=== PATIENT | female | born 1945 | race Caucasian/White ===

== ENCOUNTER 2022-02-14 19:51 | Observation (INO) ==
[2022-02-14] MEDS ORDERED: ONDANSETRON INJ 2 MG/ML 2 ML VIAL IV STA ×2 (20:18→22:00)
[2022-02-14] MEDS ORDERED: SODIUM CHLORIDE 0.9% 1000ML 500 ML IV ONE (20:20)
--- NOTE | 2022-02-14 20:24 | Emergency Department Note ---
Impression & Plan Nausea & vomiting, Small bowel obstruction ED Provider Note Provider: Dariel Zarco MD DATE OF SERVICE: 02/14/2022 CHIEF COMPLAINT: HISTORY OF PRESENT ILLNESS: Patient is a 76-year-old female presenting today reporting onset of nausea and vomiting with some upper abdominal discomfort coming in waves since around 11:45 AM this morning. No significant diarrhea reported. No fevers. Was well yesterday. No suspect food intake. No trauma reported. History of prior hysterectomy as well as colonoscopy with perforation required abdominal surgery some years ago. Never keep anything down this evening. Still feels nauseous. Pain mild at this time. No lower abdominal pain. No radiation of the pain to the back. Denies significant sinus congestion. REVIEW OF SYSTEMS: A total of 10 review of systems was obtained and negative except as stated above in the HPI. 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 NECK: Trachea midline. ENT: Mucous membranes pink and moist. LUNGS: Airway patent. No retractions. Breath sounds clear with good air entry bilaterally. HEART: Regular rate and rhythm. No chest wall tenderness ABDOMEN: Soft with minimal epigastric and right upper quadrant tenderness. Negative Weems's sign SKIN: Acyanotic, warm, dry, without rashes EXTREMITIES: Without swelling, tenderness or deformity NEUROLOGICAL: No focal deficits. No aphasia. No facial droop or slurred speech. EK beats per normal sinus rhythm without PVC. No acute ST segment elevation or depression with a QTC of 463. Left anterior fascicular block is noted. CONTINUOUS CARDIAC MONITORING: was ordered and showed a heart rate of 70s-80s bpm in normal sinus rhythm Patient's laboratory studies and imaging reviewed. Differential includes Appendicitis, infections, diverticulitis, UTI, obstruction, mesenteric ischemia, aortic pathology, inflammatory bowel disease, renal colic, PUD, pancreatitis, biliary pathology, hernia, volvulus, constipation, as well as other pathologies. IMPRESSION/MEDICAL DECISION MAKING: And with nausea and vomiting today by lunchtime with some intermittent wavelike upper abdominal pain. Minimal abdominal tenderness. EKG and troponin completed but low suspicion for cardiac disease and troponin is reassuring. Slight leukocytosis of 14 is nonspecific. No anemia. No evidence of elevated b ilirubin or LFT abnormality. Negative lipase. Negative COVID today. CT scan given her complaints and history of abdominal issues in the distant past was completed look for intra-abdominal pathology. CT scan as below question small bowel obstruction. Discussed with the patient. Having some nausea given additional Zofran. Some Tylenol for some abdominal discomfort. Discussed with her further care at the hospital and attempted NG tube placement. Discussed with the hospitalist for further care here. DIAGNOSIS: Nausea and vomiting, small bowel obstruction DISPOSITION: Hospitalist will evaluate Patient was agreeable with this plan. Preliminary Findings Only See Final Report For Complete Findings CT ABDOMEN & PELVIS With Contrast: Findings consistent with at least partial small bowel obstruction with the transition point noted in the right anterior pelvis. Beyond the transition point, there are several abnormal appearing small bowel loops with concentric thickened mucosa. Findings are most consistent with inflammatory or infectious enteritis. No pneumatosis or pneumoperitoneum. No free intraperitoneal fluid or abscess. Incidental postsurgical changes involving the distal rectosigmoid region. Status post hysterectomy. The bladder is unremarkable, accounting for degree of distention. The liver, gallbladder, pancreas, spleen, adrenal glands and kidneys are u nremarkable. Scoliosis, convex right with multilevel degenerative changes of the thoracolumbar spine. No acute osseous or significant overlying soft tissue abnormality. Radiologist: Venkatesh Delgado MD Study ready at 21:30 and initial results transmitted at 21:41 Past Med/Surg History Social History Smoking Status: Never smoker Preferred Language: Beninese Feels Safe at Home: Yes Allergies Allergies Allergy/AdvReac Type Severity Reaction Status Date / Time doxycycline Allergy Severe SEVERE Verified 02/14/22 21:37 PHOTOSENSATIVE RASH Penicillins Allergy Intermediate Rash Verified 02/14/22 21:37 phenobarbital Allergy Intermediate Rash Verified 02/14/22 21:37 Tetracyclines Allergy Intermediate Rash Verified 02/14/22 21:37 Home Meds Home Medications Medication Instructions Recorded Confirmed albuterol sulfate 90 mcg/actuation 2 puff inhalation Q4H PRN 02/14/22 02/14/22 aerosol inhaler Shortness Of Breath Or Wheezing calcium carbonate 600 mg-vitamin 2 cap PO DAILY 02/14/22 02/14/22 D3 12.5 mcg (500 unit) capsule (Calcium 600 with Vitamin D3) cholecalciferol (vitamin D3) 25 25 mcg PO DAILY 02/14/22 02/14/22 mcg (1,000 unit) capsule (Vitamin D3) coenzyme Q10 100 mg capsule 100 mg PO DAILY 02/14/22 02/14/22 (CoQ-10) cyclobenzaprine 5 mg tablet 5 mg PO TID PRN MUSCLE SPASMS 02/14/22 02/14/22 duloxetine 60 mg capsule,delayed 60 mg PO DAILY 02/14/22 02/14/22 release famotidine 20 mg tablet 20 mg PO DAILY 02/14/22 02/14/22 fluticasone furoate 200 1 inh inhalation DAILY 02/14/22 02/14/22 mcg-vilanterol 25 mcg/dose inhalation powder (Breo Ellipta) fluticasone propionate 50 2 spray intranasal DAILY 02/14/22 02/14/22 mcg/actuation nasal spray,suspension levothyroxine 75 mcg tablet 75 mcg PO DAILYBB 02/14/22 02/14/22 lisinopril 10 mg tablet 10 mg PO DAILY 02/14/22 02/14/22 lysine 1,000 mg tablet 1,000 mg PO DAILY 02/14/22 02/14/22 multivitamin 1 tab PO DAILY 02/14/22 02/14/22 Results & Data (ED) Vital Signs Vital Signs - 24 hr 02/14/22 19:55 02/14/22 20:23 02/14/22 20:24 Temperature 36.6 C Temperature Source Oral Pulse Rate 87 Pulse Rate [Apical] 79 Pulse Rhythm [Apical] Respiratory Rate 20 28 H Respiratory Effort / Characteristics Non-Labored Spontaneous Respiratory Depth Normal Blood Pressure 109/72 Blood Pressure [Right Arm] 127/87 Blood Pressure Mean 84 Blood Pressure Mean [Right Arm] 100 Pulse Oximetry 93 92 92 Oxygen Delivery Method Room Air Room Air Oxygen Flow Rate Sepsis New/Unexplained Change in Mental Status N/A Sepsis Action Taken by Nursing No Action Required 02/14/22 22:00 02/15/22 00:00 Temperature Temperature Source Pulse Rate Pulse Rate [Apical] 78 72 Pulse Rhythm [Apical] Regular Respiratory Rate 17 16 Respiratory Effort / Characteristics Respiratory Depth Blood Pressure Blood Pressure [Right Arm] 101/57 L 101/71 Blood Pressure Mean Blood Pressure Mean [Right Arm] 71 81 Pulse Oximetry 90 97 Oxygen Delivery Method Room Air Nasal Cannula Oxygen Flow Rate 3 Sepsis New/Unexplained Change in Mental Status Sepsis Action Taken by Nursing Laboratory Data Result diagrams: 02/14/22 20:02/14/22 20:22 Lab Results 02/14/22 02/14/22 02/14/22 Range/Units 20: 20: 20:23 WBC 14.09 H (4.8-10.8) K/ul RBC 5.44 H (3.93-5.22) M/uL Hgb 15.8 (12.0-16.0) g/dl Hct 47.7 H (34.1-44.9) % MCV 87.7 (80.0-100.0) fL MCH 29.0 (25.0-34.0) pg MCHC 33.1 (32.0-36.0) g/dL RDW Std Deviation 41.7 (36.4-46.3) fL RDW Coeff of Ana 12.9 (11.5-14.5) % Plt Count 177 (130-400) K/uL MPV 12.3 (9.4-12.3) fL Immature Gran % (Auto) 0.4 % Neut % (Auto) 82.1 % Lymph % (Auto) 13.5 % Cloud % (Auto) 3.3 % Eos % (Auto) 0.4 % Baso % (Auto) 0.3 % Neut # (Auto) 11.59 H (1.4-6.5) K/uL Lymph # (Auto) 1.90 (1.2-3.4) K/uL Cloud # (Auto) 0.46 (0.24-0.82) K/uL Eos # (Auto) 0.05 (0-0.50) K/uL Baso # (Auto) 0.04 (0-0.2) K/uL Immature Gran # (Auto) 0.05 H (0.00-0.02) K/uL Sodium 138 (136-145) mmol/L Potassium 4.2 (3.5-5.1) mmol/L Chloride 99 (98-107) mmol/L Carbon Dioxide 26 (21-32) mmol/L Anion Gap 13 H (3-11) BUN 17 (6-23) mg/dl Creatinine 1.18 (0.6-1.2) mg/dl Est Cr Clr Drug Dosing 30.6 ml/min Est GFR ( Amer) 51.5 ml/min Est GFR (Non-Af Amer) 44.5 ml/min BUN/Creatinine Ratio 14.4 (10-20) Glucose 154 H (70-99(Fasting)) mg/dl Calcium 10.0 (8.5-10.1) mg/dl Total Bilirubin 0.7 (0.2-1.0) mg/dl AST 16 (13-39) U/L ALT 3 L (7-52) U/L Alkaline Phosphatase 96 (34-104) U/L Troponin I High Sens 3.3 (0-14) pg/ml Total Protein 8.2 (6.0-8.3) gm/dl Albumin 4.4 (3.4-5.0) gm/dl Globulin 3.8 (2.5-4.0) gm/dl Albumin/Globulin Ratio 1.2 (0.9-2) Lipase 43 (11-82) U/L SARS-CoV-2, RNA, NAAT NEGATIVE (NEGATIVE) Administered Medications Discontinued Medications Sodium Chloride (Nss 1000ml) 500 mls @ 999 mls/hr IV .Q31M ONE Stop: 02/14/22 20:50 Last Infusion: 02/14/22 21:09 Dose: 0 mls/hr Documented By: Admin: 02/14/22 20:29 Dose: 999 mls/hr Documented By: BONIFACIO Acetaminophen (Ofirmev) 1,000 mg in 100 mls @ 400 mls/hr IV NOW STA Stop: 02/14/22 22:21 Last Infusion: 02/14/22 22:53 Dose: 0 mls/hr Documented By: Admin: 02/14/22 22:24 Dose: 400 mls/hr Documented By: BONIFACIO Ioversol (Optiray 320 100ml) 94 ml IV ONCE ONE Stop: 02/14/22 21:14 Last Admin: 02/14/22 21:13 Dose: 94 ml Documented By: JULIEN Ondansetron HCl (Ondansetron Inj 2 Mg/Ml 2 Ml Vial) 4 mg IV NOW STA Stop: 02/14/22 20:19 Last Admin: 02/14/22 20:29 Dose: 4 mg Documented By: BONIFACIO Ondansetron HCl (Ondansetron Inj 2 Mg/Ml 2 Ml Vial) 4 mg IV NOW STA Stop: 02/14/22 22:01 Last Admin: 02/14/22 22:23 Dose: 4 mg Documented By: EMB Discharge Plan Visit Data Chief Complaint: Vomiting Stated Complaint: VOMITING ED Provider: Dariel Zarco Discharge Problem: Nausea & vomiting, Small bowel obstruction Patient Disposition: Being Evaluated by Hospitalist Forms Stand Alone Forms: My [facility] Prescriptions Prescriptions: No Action multivitamin Tablet 1 tab PO DAILY lysine 1,000 mg Tablet 1,000 mg PO DAILY levothyroxine 75 mcg tablet 75 mcg PO DAILYBB famotidine 20 mg Tablet 20 mg PO DAILY lisinopril 10 mg tablet 10 mg PO DAILY albuterol sulfate 90 mcg/actuation Hfa Aerosol Inhaler 2 puff INHALATION Q4H PRN (Reason: Shortness Of Breath Or Wheezing) fluticasone propionate [Flonase] 50 mcg/actuation [place],Suspension 2 spray INTRANASAL DAILY Rx Instructions: administer into each nostril cholecalciferol (vitamin D3) [Vitamin D3] 25 mcg (1,000 unit) Capsule 25 mcg PO DAILY coenzyme Q10 [CoQ-10] 100 mg Capsule 100 mg PO DAILY cyclobenzaprine 5 mg Tablet 5 mg PO TID PRN (Reason: MUSCLE SPASMS) duloxetine 60 mg Capsule,Delayed Release(Dr/Ec) 60 mg PO DAILY calcium carbonate-vitamin D3 [Calcium 600 with Vitamin D3] 600 mg-12.5 mcg (500 unit) Capsule 2 cap PO DAILY fluticasone furoate-vilanterol [Breo Ellipta] 200-25 mcg/dose Blister With Device 1 inh INHALATION DAILY Referrals Referrals: PCP,NO [Primary Care Provider] -
[2022-02-14 20:32] LABS: Basophils # (auto) 0.04 K/uL (0-0.2); Basophils % (auto) 0.3 %; Eosinophils # (auto) 0.05 K/uL (0-0.50); Eosinophils % (auto) 0.4 %; Hematocrit (blood only) 47.7 % (34.1-44.9); Hemoglobin 15.8 g/dl (12.0-16.0); Immature Granulocytes # (auto) 0.05 K/uL (0.00-0.02); Immature Granulocytes % (auto) 0.4 %; Lymphocytes % (auto) 13.5 %; Mean Corpuscular Hgb Conc 33.1 g/dL (32.0-36.0); Mean Corpuscular Volume 87.7 fL (80.0-100.0); Mean Platelet Volume 12.3 fL (9.4-12.3); Monocytes # (auto) 0.46 K/uL (0.24-0.82); Monocytes % (auto) 3.3 %; Neutrophils # (auto) 11.59 K/uL (1.4-6.5); Neutrophils % (auto) 82.1 %; Platelet Count 177 K/uL (130-400); RDW Coefficient of Variation 12.9 % (11.5-14.5); RDW Standard Deviation 41.7 fL (36.4-46.3); Red Blood Count 5.44 M/uL (3.93-5.22); White Blood Count 14.09 K/ul (4.8-10.8)
[2022-02-14 20:55] LABS: Albumin Globulin Ratio 1.2 (0.9-2); Albumin Level 4.4 gm/dl (3.4-5.0); BUN Creatinine Ratio 14.4 (10-20); Bilirubin,Total 0.7 mg/dl (0.2-1.0); Creatinine Clr Calc Pharmacy 30.6 ml/min; Est GFR (African American) 51.5 ml/min; Est GFR (Non-African American) 44.5 ml/min; Globulin 3.8 gm/dl (2.5-4.0); Potassium 4.2 mmol/L (3.5-5.1); Total Protein 8.2 gm/dl (6.0-8.3)
[2022-02-14 21:01] LABS: Troponin I High Sensitivity 3.3 pg/ml (0-14)
[2022-02-14] MEDS ORDERED: OPTIRAY 320 100ml IV ONE (21:13)
[2022-02-14] MEDS ORDERED: ACETAMINOPHEN 1,000 MG/100 ML VIAL IV STA (22:07)
[2022-02-15] MEDS ORDERED: ACETAMINOPHEN 325 MG TAB PO PRN (01:38)
[2022-02-15] MEDS ORDERED: ALBUTEROL HFA 8 GM INHALER INH PRN (01:38)
[2022-02-15] MEDS ORDERED: ONDANSETRON INJ 2 MG/ML 2 ML VIAL IV PRN (01:38)
[2022-02-15] MEDS ORDERED: HYDROmorphone INJ 0.5 MG/0.5 ML SYR IV PRN (01:38)
[2022-02-15] MEDS ORDERED: CYCLOBENZAPRINE HCL 5 MG TAB PO PRN (01:38)
[2022-02-15] MEDS: D5W AND 1/2NSS 1,000 ML IV SCH ×3 (02:14→20:25)
--- NOTE | 2022-02-15 03:52 | History and Physical Report ---
DATE OF ADMISSION: 02/15/2022. CHIEF COMPLAINT: Nausea and abdominal pain. HISTORY OF PRESENT ILLNESS: A 76-year-old female with past medical history significant for hypothyroidism, hyperlipidemia, COPD, mild persistent asthma without complication, hypertension, GERD, chronic kidney disease stage III, presents with abdominal pain and nausea. The patient says since morning she is having abdominal pain that comes as cramps every 2-3 hours, lasts for 10-15 minutes. When it comes, the pain is about 4/10 to 5/10 in severity, associated with nausea. She had a somewhat loose bowel movement on Tuesday morning. The patient says she has a history of bowel obstruction in the past. Denies any chest pain. No shortness of breath, no cough, no fever, no chills. She has currently no headache, no blurred visions, no earache, no runny nose, no sore throat. Resting comfortably, hemodynamically stable. ALLERGIES: DOXYCYCLINE, PENICILLINS, PHENOBARBITAL, TETRACYCLINE, LATEX. PAST MEDICAL HISTORY: As mentioned above. PAST SURGICAL HISTORY: Appendectomy in 1986, bowel to bowel fusion, colonoscopy, drainage of vulva gland abscess, lasering of a secondary cataract on left side, total shoulder arthroplasty, bilateral cataract surgeries, tonsillectomy, adenoidectomy, total hysterectomy. MEDICATIONS: The patient is on albuterol 2 puffs inhalation q. 4 hours p.r.n., calcium carbonate with vitamin D two capsules daily, vitamin D 25 mcg p.o. daily, Coenzyme Q10 100 mg p.o. daily, cyclobenzaprine 5 mg p.o. t.i.d. p.r.n., duloxetine 60 mg p.o. daily, famotidine 20 mg p.o. daily, Breo Ellipta one inhalation daily, Flonase 2 sprays intranasal daily, levothyroxine 75 mg p.o. daily, lisinopril 10 mg p.o. daily, lysine 1000 mg p.o. daily, multivitamin 1 tablet p.o. daily. FAMILY HISTORY: Significant for sister has rheumatoid arthritis and osteoarthritis; father has allergies, asthma, hypertension; mother has hypertension, Alzheimer's disease, glaucoma; daughter has glaucoma; paternal grandmother had pancreatic cancer and diabetes; maternal grandmother had eye problems. SOCIAL HISTORY: . No smoking. Alcohol rarely. No drug use. REVIEW OF SYSTEMS: As per HPI. Rest of the review of systems is negative. PHYSICAL EXAMINATION: GENERAL: The patient is of moderate build, not in acute distress. VITAL SIGNS: Temperature 36.5, pulse 82, respiratory rate 16, blood pressure 148/85, oxygen 94% on 2 liters. HEENT: Pupils equal, round, and reactive to light. Oral mucosa moist. NECK: No JVD, no neck masses. CARDIOVASCULAR: S1 and S2 heard. Regular rate and rhythm. No murmur, no gallop. RESPIRATORY SYSTEM: Normal AP diameter. No accessory muscle use. No wheezing, no crackles. ABDOMEN: Soft, bowel sounds not heard, nontender, no distention. CENTRAL NERVOUS SYSTEM: Cranial nerves II through XII grossly intact, nonfocal. EXTREMITIES: No edema, no erythema. LABORATORY DATA: WBC 14, hemoglobin 15.8, hematocrit 47.7, platelets 177. Sodium 138, potassium 4.2, chloride 99, bicarb 26, BUN 17, creatinine 1.1, serum glucose 154, calcium 10, total bilirubin 0.7, AST 16, ALT 3, alkaline phosphatase 96. Troponin 1 high sensitivity 3.3, lipase 43. SARS-CoV-2 rapid test negative. IMAGING DATA: CT abdomen and pelvis with contrast preliminary report, findings consistent with at least partial small-bowel obstruction with a transition point noted in the right anterior pelvis. Beyond the transition point, there are several abnormal-appearing small bowel loops with concentric thickened mucosa. Findings are most consistent with inflammatory or infectious enteritis. No pneumatosis or pneumoperitoneum. No free intraperitoneal fluid or abscess. Incidental postsurgical changes involving the distal rectosigmoid region, status post hysterectomy. Bladder is unremarkable. No acute osseous or significant overlying soft tissue abnormality. EKG: Normal sinus rhythm at a rate of 84, left anterior fascicular block. ASSESSMENT AND PLAN: This is a 76-year-old female who presents with abdominal pain and nausea and found to have partial bowel obstruction. 1. Partial small bowel obstruction: The patient says had bowel obstruction in the past. Will follow final report of ct scan.In the ER, she was tried to be placed on NG tube, but it was difficult to place the NG tube, and was not placed. Will keep the patient n.p.o., IV fluids, IV antiemetics, IV pain medicines p.r.n. Closely monitor in the medical floor. Surgery consult in the a.m. Repeat KUB in the a.m. 2. History of chronic obstructive pulmonary disease: Continue home inhalers, currently stable. 3. History of mild persistent asthma: Continue home inhalers. 4. History of hypertension: On lisinopril. if not able to take oral, will be placed on IV hydralazine p.r.n. 5. History of hypothyroidism: On Synthroid. 6. Gastroesophageal reflux disease: On Pepcid. 7. Chronic kidney disease stage III: Currently with a creatinine of 1.1, will follow the labs. 8. Deep venous thrombosis prophylaxis: Lovenox. DISPOSITION: Admit to medical floor. PT/OT prior to discharge. Social service to help with discharge planning. Job ID: [id number] [facility] MED[facility] CENTERKenyatta
[2022-02-15] MEDS: LEVOTHYROXINE SODIUM 75 MCG TABLET PO SCH (05:27)
[2022-02-15] MEDS: ENOXAPARIN INJ 40 MG/0.4 ML SYR SQ SCH (05:27)
[2022-02-15 05:31] LABS: Basophils # (auto) 0.02 K/uL (0-0.2); Basophils % (auto) 0.2 %; Eosinophils # (auto) 0.05 K/uL (0-0.50); Eosinophils % (auto) 0.4 %; Hematocrit (blood only) 42.5 % (34.1-44.9); Hemoglobin 13.8 g/dl (12.0-16.0); Immature Granulocytes # (auto) 0.03 K/uL (0.00-0.02); Immature Granulocytes % (auto) 0.2 %; Lymphocytes # (auto) 1.45 K/uL (1.2-3.4); Lymphocytes % (auto) 11.9 %; Mean Corpuscular Hgb Conc 32.5 g/dL (32.0-36.0); Mean Corpuscular Volume 89.3 fL (80.0-100.0); Mean Platelet Volume 12.5 fL (9.4-12.3); Monocytes # (auto) 0.59 K/uL (0.24-0.82); Monocytes % (auto) 4.8 %; Neutrophils # (auto) 10.08 K/uL (1.4-6.5); Neutrophils % (auto) 82.5 %; Platelet Count 146 K/uL (130-400); RDW Standard Deviation 42.4 fL (36.4-46.3); Red Blood Count 4.76 M/uL (3.93-5.22); White Blood Count 12.22 K/ul (4.8-10.8)
[2022-02-15 05:39] LABS: Appearance Urine Clear (Clear); Bacteria Urine Automated Negative (Negative); Bilirubin Urine Negative (Negative); Blood Urine Negative (Negative); Color Urine Yellow; Glucose Urine UA Negative (Negative); Ketones Urine Negative (Negative); Leukocyte Esterase Urine Negative (Negative); Nitrite Urine Negative (Negative); Protein Urine Trace (Negative); RBC Urine Automated 0-4 /hpf (0-4); Specific Gravity Urine > 1.045 (1.000-1.030); Urobilinogen Urine Negative (Negative); pH Urine 6.5 (4.5-7.5)
[2022-02-15 05:49] LABS: BUN Creatinine Ratio 17.1 (10-20); Calcium 8.7 mg/dl (8.5-10.1); Creatinine Clr Calc Pharmacy 32.4 ml/min; Est GFR (African American) 55.5 ml/min; Est GFR (Non-African American) 47.9 ml/min; Magnesium 1.8 mg/dl (1.7-2.4); Potassium 4.1 mmol/L (3.5-5.1)
[2022-02-15] MEDS ORDERED: hydrALAZINE HCL 20 MG/ML VIAL IV PRN (06:32)
--- NOTE | 2022-02-15 07:19 | CT Scan Report ---
CT abd pelvis IV con only CLINICAL HISTORY: upper abd pain, n/v COMPARISON STUDY: No previous studies for comparison. CT DOSE: 257.47 mGy.cm TECHNIQUE: Standard CT of the Abdomen and Pelvis was performed with IV contrast. A dose lowering lisa hnique was utilized adhering to the principles of ALARA. Contrast Volume: Optiray 320, 94 ml. The patient did not receive oral contrast. FINDINGS: Lung base: The lung bases are clear. Abdominal cavity: There is no evidence for abdominal mass, adenopathy or ascites. There is a small ve ntral hernia on the right with a loop of bowel bulging into it. There is no evidence for obstruction or incarceration. Liver: There is homogeneous attenuation of the liver parenchyma. There is no evidence for enhancing m ass lesion. Spleen: There is homogeneous attenuation of the splenic parenchyma. There is no enhancing mass lesion . Pancreas: There is homogeneous attenuation of the pancreatic parenchyma. There is no evidence for mas s lesion or peripancreatic fluid collection. Gall Bladder: The gallbladder is well distended with no evidence for intraluminal calculi, wall thick ening or pericholecystic edema. Adrenal glands: The adrenal glands are normal in size and attenuation. There is no evidence for enhan cing mass lesion. Kidneys: There is homogeneous attenuation of the renal parenchyma bilaterally. There is no evidence f or renal calculus or hydronephrosis. There is no evidence for enhancing mass. Bowel: The stomach is distended with liquid and food stuff. There is mild to moderate dilatation of t he jejunum and majority of the ileum with decompression of the distal ileum. The findings are charact eristic of a partial small bowel obstruction. The exact site of obstruction cannot be determined. It is most likely related to adhesions. There are postsurgical changes present within the sigmoid colon with end-to-end anastomosis. There is no evidence for mass lesion. There are no inflammatory changes present. There is no evidence for miranda e air. Bladder: The bladder is within normal limits with no evidence for focal mass, calculus or diverticulu m. : There is no evidence for pelvic mass or adenopathy. There is no evidence for pelvic ascites. Vasculature: There is no evidence for aneurysmal dilatation of the abdominal aorta. Atherosclerotic c alcification is present. Osseous structures: There is no acute osseous pathology. Dextroscoliotic curve with extensive degener ative changes are seen involving the lumbar spine. IMPRESSION: 1. CT findings most characteristic of a partial small bowel obstruction related to the distal ileum. However, the exact site of obstruction cannot be determined by this study. It is probably related to adhesions. 2. Postsurgical changes of the sigmoid colon. 3. Additional nonacute findings are delineated above. ACT 112: Negative or not required by law. Electronically signed by: Ryan Bhatt M.D. 02/15/2022 7:18 AM
[2022-02-15] MEDS: FLUTICASONE PROPIONATE NA SPR 16 GM BTL SCH (07:58)
[2022-02-15] MEDS: FLUTICASONE/VILANTEROL 200/25MCG 14 PUFFS/INHALER INH SCH (07:58)
[2022-02-15] MEDS: FAMOTIDINE 20 MG TAB PO SCH (08:01)
[2022-02-15] MEDS: DULoxetine HCL 60 MG CAP PO SCH (08:01)
[2022-02-15] MEDS: lisinopril 10 MG TAB PO SCH (08:27)
[2022-02-15] MEDS ORDERED: MoRPHine SULFATE 2 MG/ML CARP IV PRN (08:40)
[2022-02-15] MEDS ORDERED: ACETAMINOPHEN 1,000 MG/100 ML VIAL IV PRN (08:40)
[2022-02-15] MEDS ORDERED: MULTIVITAMIN TAB PO SCH (09:00)
--- NOTE | 2022-02-15 09:26 | XRay Report ---
XR KUB/Abdomen 1 view CLINICAL HISTORY: sbo. COMPARISON STUDY: CT of the abdomen and pelvis from 02/03/2022 TECHNIQUE: Single view of the abdomen. FINDINGS: Compared to the CT examination, there is decreased gaseous distention of the proximal small bowel. Th e distal small bowel is decompressed. The colon is decompressed. There is no evidence for organomegal y or gross intra-abdominal mass. No abnormal calcifications are seen along the course of the urinary tracts bilaterally. No acute osseous pathology. IMPRESSION: 1. Decreased gaseous distention of the proximal small bowel with no definite radiographic evidence fo r small bowel obstruction. ACT 112: Negative or not required by law. Electronically signed by: Ryan Bhatt M.D. 02/15/2022 9:25 AM
--- NOTE | 2022-02-15 10:45 | Surgery Consultation ---
Date of Consultation February 15, 2022 Assessment & Plan (1) Nausea & vomiting: (2) Small bowel obstruction: Plan 76 year-old female with history of sigmoid colon resection with primary anastomosis after colonoscopy perforation in 1979 and total abdominal hysterectomy presented to ED with nausea and vomiting for [address]. [address] scan of abdomen and pelvis with distended small bowel likely PSBO due to adhesions with no clear transition point. Mild leukocytosis of 14K. KUB today showing decreased small bowel distention with no clear radiographic evidence of SBO. + flatus this am Plan: No acute surgical intervention required at this time. Continue conservative management. Since she had multiple episode of vomiting yesterday and placement of NGT unsuccessful and only passed small amount of flatus would recommend continuing ice chips/sips for now until passing more flatus IV fluids while npo encouraged ambulation and OOB to chair continue current medical management Patient seen with Dr. Byrd. See addendum for further recommendations/plan. Supervising Physician Co-Signing Physician Notes I have seen and examined the patient personally and agree with the above assessment plan. In brief, she has what appears to be a partial small bowel obstruction. She denies nausea or vomiting. She does not have an NG tube. We will treat her conservatively with n.p.o., IV fluids. We will continue to follow. History of Present Illness Reason for Consultation: SBO Requesting Physician: Dr. Tre MD Attending Physician: Beverly Perales MD History of Present Illness Cindy is a 76 year-old female with past medical history of asthma, GERD, hypertension, hyperlipidemia, chronic kidney disease stage III, history of colon resection s/p colonoscopy perforation in and total hysterectomy with appendectomy prior who presented to emergency department last evening due to nausea and vomiting. States she vomited about 3 times prior to arrival every 2- 3 hours. Bilious vomiting. No significant abdominal pain associated with the vomiting. Noticed decreased bowel sounds and not passing any gas. Last bowel movement was yesterday morning and was pale yellow in color. She had a CT scan of abdomen and pelvis in emergency department which showed possible partial SBO without clear transition point. She states she is current feeling better than last evening. Nausea and vomiting have subsided. No significant abdominal pain. Passed small amount of gas this morning. Allergies Allergy/AdvReac Type Severity Reaction Status Date / Time doxycycline Allergy Severe SEVERE Verified 02/14/22 21:37 PHOTOSENSATIVE RASH Penicillins Allergy Intermediate Rash Verified 02/14/22 21:37 phenobarbital Allergy Intermediate Rash Verified 02/14/22 21:37 Tetracyclines Allergy Intermediate Rash Verified 02/14/22 21:37 latex Allergy Rash Verified 02/15/22 01:52 Home Medications Medication Instructions Recorded Confirmed Type albuterol sulfate 90 mcg/actuation 2 puff inhalation Q4H PRN 02/14/22 02/14/22 History aerosol inhaler Shortness Of Breath Or Wheezing calcium carbonate 600 mg-vitamin 2 cap PO DAILY 02/14/22 02/14/22 History D3 12.5 mcg (500 unit) capsule (Calcium 600 with Vitamin D3) cholecalciferol (vitamin D3) 25 25 mcg PO DAILY 02/14/22 02/14/22 History mcg (1,000 unit) capsule (Vitamin D3) coenzyme Q10 100 mg capsule 100 mg PO DAILY 02/14/22 02/14/22 History (CoQ-10) cyclobenzaprine 5 mg tablet 5 mg PO TID PRN MUSCLE SPASMS 02/14/22 02/14/22 History duloxetine 60 mg capsule,delayed 60 mg PO DAILY 02/14/22 02/14/22 History release famotidine 20 mg tablet 20 mg PO DAILY 02/14/22 02/14/22 History fluticasone furoate 200 1 inh inhalation DAILY 02/14/22 02/14/22 History mcg-vilanterol 25 mcg/dose inhalation powder (Breo Ellipta) fluticasone propionate 50 2 spray intranasal DAILY 02/14/22 02/14/22 History mcg/actuation nasal spray,suspension levothyroxine 75 mcg tablet 75 mcg PO DAILYBB 02/14/22 02/14/22 History lisinopril 10 mg tablet 10 mg PO DAILY 02/14/22 02/14/22 History lysine 1,000 mg tablet 1,000 mg PO DAILY 02/14/22 02/14/22 History multivitamin 1 tab PO DAILY 02/14/22 02/14/22 History Patient History Medical History (Updated 02/15/22 @ 11:32 by Beverley Leblanc PA-C) Asthma GERD (gastroesophageal reflux disease) Hyperlipidemia Hypertension Hypothyroidism Seasonal allergies Vertigo Surgical History (Updated 02/15/22 @ 11:32 by Beverley Leblanc PA-C) H/O colonoscopy h/o colonoscopy in 1980s that resulted in perforated bowel H/O total hysterectomy History of appendectomy History of colectomy History of left shoulder replacement Social History Smoking Status: Never smoker Do You Dip or Chew Tobacco: No; Hx Alcohol Use: Yes Hx Substance Use: No Preferred Language: Urdu Communication Ability: Effective Caving Guide Required: No Beliefs That Will Affect Care: None marital status: Current Living Situation: Family Current Living Situation Comment: lives with disabled & 2 grandsons who help take care of pts Other Information That Helps Us Care for You: No Feels Safe at Home: Yes Safety Concerns: Feels Safe At This Time Assistive Devices: Denture - Upper and Glasses Review of Systems Review of Systems: All systems reviewed & are unremarkable except as noted in HPI & below Physical Exam Constitutional: WD/WN, vitals as above no acute distress and not ill appearing Neck: normal visual inspection and trachea midline Respiratory: normal respiratory effort; no respiratory distress and no labored breathing Gastrointestinal (Abdomen): Inspection/Auscultation: abdomen normal to inspection and + abdominal surgical scar (midline laparotomy scar present); abdomen not distended Percussion/Palpation: + abdomen tender (Mild tenderness in the right abdomen) and abdomen soft; no guarding and abdomen not rigid Skin: no rashes, warm and dry Psychiatric: A+Ox3, euthymic affect Results & Data ([facility]) Vital Signs (Past 12 Hours) Vital Signs Temp Pulse Pulse Resp BP Pulse Ox O2 Del Method 02/15/22 07:50 Nasal Cannula 02/15/22 07:39 36.5 C 68 18 102/73 98 02/15/22 01:15 Nasal Cannula 02/15/22 01:15 36.5 C 82 16 148/85 H 95 Nasal Cannula 02/15/22 00:00 72 16 101/71 97 Nasal Cannula O2 Flow Rate 02/15/22 07:50 1 02/15/22 07:39 02/15/22 01:15 2 02/15/22 01:15 2 02/15/22 00:00 3 Laboratory Results 02/15/22 02/15/22 02/15/22 Range/Units 05:17 05:17 04:42 WBC 12.22 H (4.8-10.8) K/ul RBC 4.76 (3.93-5.22) M/uL Hgb 13.8 (12.0-16.0) g/dl Hct 42.5 (34.1-44.9) % MCV 89.3 (80.0-100.0) fL MCH 29.0 (25.0-34.0) pg MCHC 32.5 (32.0-36.0) g/dL RDW Std Deviation 42.4 (36.4-46.3) fL RDW Coeff of Ana 13.0 (11.5-14.5) % Plt Count 146 (130-400) K/uL MPV 12.5 H (9.4-12.3) fL Immature Gran % (Auto) 0.2 % Neut % (Auto) 82.5 % Lymph % (Auto) 11.9 % [place] % (Auto) 4.8 % Eos % (Auto) 0.4 % Baso % (Auto) 0.2 % Neut # (Auto) 10.08 H (1.4-6.5) K/uL Lymph # (Auto) 1.45 (1.2-3.4) K/uL [place] # (Auto) 0.59 (0.24-0.82) K/uL Eos # (Auto) 0.05 (0-0.50) K/uL Baso # (Auto) 0.02 (0-0.2) K/uL Immature Gran # (Auto) 0.03 H (0.00-0.02) K/uL Sodium 138 (136-145) mmol/L Potassium 4.1 (3.5-5.1) mmol/L Chloride 103 (98-107) mmol/L Carbon Dioxide 28 (21-32) mmol/L Anion Gap 7 (3-11) BUN 19 (6-23) mg/dl Creatinine 1.11 (0.6-1.2) mg/dl Est Cr Clr Drug Dosing 32.4 ml/min Est GFR ( Amer) 55.5 ml/min Est GFR (Non-Af Amer) 47.9 ml/min BUN/Creatinine Ratio 17.1 (10-20) Glucose 119 H (70-99(Fasting)) mg/dl Calcium 8.7 (8.5-10.1) mg/dl Magnesium 1.8 (1.7-2.4) mg/dl Total Bilirubin (0.2-1.0) mg/dl AST (13-39) U/L ALT (7-52) U/L Alkaline Phosphatase (34-104) U/L Troponin I High Sens (0-14) pg/ml Total Protein (6.0-8.3) gm/dl Albumin (3.4-5.0) gm/dl Globulin (2.5-4.0) gm/dl Albumin/Globulin Ratio (0.9-2) Lipase (11-82) U/L Urine Color Yellow Urine Appearance Clear (Clear) Urine pH 6.5 (4.5-7.5) Ur Specific Leonard > 1.045 H (1.000-1.030) Urine Protein Trace H (Negative) Urine Glucose (UA) Negative (Negative) Urine Ketones Negative (Negative) Urine Blood Negative (Negative) Urine Nitrite Negative (Negative) Urine Bilirubin Negative (Negative) Urine Urobilinogen Negative (Negative) Ur Leukocyte Esterase Negative (Negative) Urine WBC (Auto) 5-10 H (0-5) /hpf Urine RBC (Auto) 0-4 (0-4) /hpf U Hyaline Cast (Auto) 1-5 (0-5) /lpf U Epithel Cells (Auto) 10-20 H (0-5) /lpf Urine Bacteria (Auto) Negative (Negative) SARS-CoV-2, RNA, NAAT (NEGATIVE) 02/14/22 02/14/22 02/14/22 Range/Units 20:23 20:22 20:22 WBC 14.09 H (4.8-10.8) K/ul RBC 5.44 H (3.93-5.22) M/uL Hgb 15.8 (12.0-16.0) g/dl Hct 47.7 H (34.1-44.9) % MCV 87.7 (80.0-100.0) fL MCH 29.0 (25.0-34.0) pg MCHC 33.1 (32.0-36.0) g/dL RDW Std Deviation 41.7 (36.4-46.3) fL RDW Coeff of Ana 12.9 (11.5-14.5) % Plt Count 177 (130-400) K/uL MPV 12.3 (9.4-12.3) fL Immature Gran % (Auto) 0.4 % Neut % (Auto) 82.1 % Lymph % (Auto) 13.5 % [place] % (Auto) 3.3 % Eos % (Auto) 0.4 % Baso % (Auto) 0.3 % Neut # (Auto) 11.59 H (1.4-6.5) K/uL Lymph # (Auto) 1.90 (1.2-3.4) K/uL [place] # (Auto) 0.46 (0.24-0.82) K/uL Eos # (Auto) 0.05 (0-0.50) K/uL Baso # (Auto) 0.04 (0-0.2) K/uL Immature Gran # (Auto) 0.05 H (0.00-0.02) K/uL Sodium 138 (136-145) mmol/L Potassium 4.2 (3.5-5.1) mmol/L Chloride 99 (98-107) mmol/L Carbon Dioxide 26 (21-32) mmol/L Anion Gap 13 H (3-11) BUN 17 (6-23) mg/dl Creatinine 1.18 (0.6-1.2) mg/dl Est Cr Clr Drug Dosing 30.6 ml/min Est GFR ( Amer) 51.5 ml/min Est GFR (Non-Af Amer) 44.5 ml/min BUN/Creatinine Ratio 14.4 (10-20) Glucose 154 H (70-99(Fasting)) mg/dl Calcium 10.0 (8.5-10.1) mg/dl Magnesium (1.7-2.4) mg/dl Total Bilirubin 0.7 (0.2-1.0) mg/dl AST 16 (13-39) U/L ALT 3 L (7-52) U/L Alkaline Phosphatase 96 (34-104) U/L Troponin I High Sens 3.3 (0-14) pg/ml Total Protein 8.2 (6.0-8.3) gm/dl Albumin 4.4 (3.4-5.0) gm/dl Globulin 3.8 (2.5-4.0) gm/dl Albumin/Globulin Ratio 1.2 (0.9-2) Lipase 43 (11-82) U/L Urine Color Urine Appearance (Clear) Urine pH (4.5-7.5) Ur Specific Leonard (1.000-1.030) Urine Protein (Negative) Urine Glucose (UA) (Negative) Urine Ketones (Negative) Urine Blood (Negative) Urine Nitrite (Negative) Urine Bilirubin (Negative) Urine Urobilinogen (Negative) Ur Leukocyte Esterase (Negative) Urine WBC (Auto) (0-5) /hpf Urine RBC (Auto) (0-4) /hpf U Hyaline Cast (Auto) (0-5) /lpf U Epithel Cells (Auto) (0-5) /lpf Urine Bacteria (Auto) (Negative) SARS-CoV-2, RNA, NAAT NEGATIVE (NEGATIVE) Diagnostic Findings XR KUB/Abdomen 1 view CLINICAL HISTORY: sbo. COMPARISON STUDY: CT of the abdomen and pelvis from 02/03/2022 TECHNIQUE: Single view of the abdomen. FINDINGS: Compared to the CT examination, there is decreased gaseous distention of the proximal small bowel. The distal small bowel is decompressed. The colon is decompressed. There is no evidence for organomegaly or gross intra-abdominal mass. No abnormal calcifications are seen along the course of the urinary tracts bilaterally. No acute osseous pathology. IMPRESSION: 1. Decreased gaseous distention of the proximal small bowel with no definite radiographic evidence for small bowel obstruction. CT abd pelvis IV con only CLINICAL HISTORY: upper abd pain, n/v COMPARISON STUDY: No previous studies for comparison. CT DOSE: 257.47 mGy.cm TECHNIQUE: Standard CT of the Abdomen and Pelvis was performed with IV contrast. A dose lowering technique was utilized adhering to the principles of ALARA. Contrast Volume: Optiray 320, 94 ml. The patient did not receive oral contrast. FINDINGS: Lung base: The lung bases are clear. Abdominal cavity: There is no evidence for abdominal mass, adenopathy or ascites. There is a small ventral hernia on the right with a loop of bowel bulging into it. There is no evidence for obstruction or incarceration. Liver: There is homogeneous attenuation of the liver parenchyma. There is no evidence for enhancing mass lesion. Spleen: There is homogeneous attenuation of the splenic parenchyma. There is no enhancing mass lesion. Pancreas: There is homogeneous attenuation of the pancreatic parenchyma. There is no evidence for mass lesion or peripancreatic fluid collection. Gall Bladder: The gallbladder is well distended with no evidence for intraluminal calculi, wall thickening or pericholecystic edema. Adrenal glands: The adrenal glands are normal in size and attenuation. There is no evidence for enhancing mass lesion. Kidneys: There is homogeneous attenuation of the renal parenchyma bilaterally. There is no evidence for renal calculus or hydronephrosis. There is no evidence for enhancing mass. Bowel: The stomach is distended with liquid and food stuff. There is mild to moderate dilatation of the jejunum and majority of the ileum with decompression of the distal ileum. The findings are characteristic of a partial small bowel obstruction. The exact site of obstruction cannot be determined. It is most likely related to adhesions. There are postsurgical changes present within the sigmoid colon with end-to-end anastomosis. There is no evidence for mass lesion. There are no inflammatory changes present. There is no evidence for free air. Bladder: The bladder is within normal limits with no evidence for focal mass, calculus or diverticulum. : There is no evidence for pelvic mass or adenopathy. There is no evidence for pelvic ascites. Vasculature: There is no evidence for aneurysmal dilatation of the abdominal aorta. Atherosclerotic calcification is present. Osseous structures: There is no acute osseous pathology. Dextroscoliotic curve with extensive degenerative changes are seen involving the lumbar spine. IMPRESSION: 1. CT findings most characteristic of a partial small bowel obstruction related to the distal ileum. However, the exact site of obstruction cannot be determined by this study. It is probably related to adhesions. 2. Postsurgical changes of the sigmoid colon. 3. Additional nonacute findings are delineated above.
[2022-02-15] MEDS ORDERED: MECLIZINE HCL 25 MG TAB PO PRN (11:19)
--- NOTE | 2022-02-15 11:21 | Communication Note ---
Date of Service: February 15, 2022 Patient admitted earlier today for partial SBO. Chart reviewed. Patient seen and examined in her room 322. Continue bowel rest. Encourage ambulation. Continue IV fluids. Limit non essential oral medications. Surgery consulted, appreciate input Full note to follow tomorrow
--- NOTE | 2022-02-15 12:43 | Electrocardiogram Report ---
Test Reason : Blood Pressure : / mmHG Vent. Rate : 084 BPM Atrial Rate : 084 BPM P-R Int : 114 ms QRS Dur : 072 ms QT Int : 392 ms P-R-T Axes : 061 -59 068 degrees QTc Int : 463 ms Normal sinus rhythm Left anterior fascicular block Abnormal ECG When compared with ECG of 08-OCT-2000 07:03, Nonspecific T wave abnormality, improved in Lateral leads QT has lengthened Confirmed by Spencer Sykes ([id number]) on 02/15/2022 12:42:48 PM Referred By: REFERRED SELF Confirmed By:Spencer Sykes
[2022-02-16] MEDS: D5W AND 1/2NSS 1,000 ML IV SCH ×2 (06:08→16:03)
[2022-02-16] MEDS: ENOXAPARIN INJ 40 MG/0.4 ML SYR SQ SCH (06:08)
[2022-02-16] MEDS: LEVOTHYROXINE SODIUM 75 MCG TABLET PO SCH (06:08)
[2022-02-16 07:30] LABS: Hematocrit (blood only) 39.6 % (34.1-44.9); Hemoglobin 12.5 g/dl (12.0-16.0); Mean Corpuscular Hemoglobin 28.8 pg (25.0-34.0); Mean Corpuscular Hgb Conc 31.6 g/dL (32.0-36.0); Mean Corpuscular Volume 91.2 fL (80.0-100.0); Mean Platelet Volume 12.5 fL (9.4-12.3); Platelet Count 127 K/uL (130-400); RDW Coefficient of Variation 13.1 % (11.5-14.5); RDW Standard Deviation 43.8 fL (36.4-46.3); Red Blood Count 4.34 M/uL (3.93-5.22); White Blood Count 5.75 K/ul (4.8-10.8)
[2022-02-16 07:50] LABS: BUN Creatinine Ratio 10.6 (10-20); Calcium 8.3 mg/dl (8.5-10.1); Creatinine Clr Calc Pharmacy 38.3 ml/min; Est GFR (African American) 67.8 ml/min; Est GFR (Non-African American) 58.5 ml/min; Magnesium 1.7 mg/dl (1.7-2.4); Phosphorus 3.3 mg/dl (2.5-4.9); Potassium 3.7 mmol/L (3.5-5.1)
[2022-02-16] MEDS: DULoxetine HCL 60 MG CAP PO SCH (08:08)
[2022-02-16] MEDS: FLUTICASONE/VILANTEROL 200/25MCG 14 PUFFS/INHALER INH SCH (08:09)
[2022-02-16] MEDS: FLUTICASONE PROPIONATE NA SPR 16 GM BTL SCH (08:09)
--- NOTE | 2022-02-16 12:23 | Surgery Progress Note ---
Date of Service February 16, 2022 Assessment & Plan (1) Nausea & vomiting: (2) Small bowel obstruction: Plan 76 year-old female with history of sigmoid colon resection with primary anastomosis after colonoscopy perforation in 1979 and total abdominal hysterectomy presented to ED with nausea and vomiting for [address]. [address] scan of abdomen and pelvis with distended small bowel likely PSBO due to adhesions with no clear transition point. Mild leukocytosis of 14K. KUB 02/15/2022 showing decreased small bowel distention with no clear radiographic evidence of SBO. 02/16/2022: no significnat improved, mild bloating per patient but exam soft and nondistended small amounts of flatus no n,v Plan: No acute surgical intervention required at this time. Continue conservative management. okay for herbal tea today, take slowly IV fluids while npo encouraged ambulation and OOB to chair continue current medical management if no significant improvement by tomorrow will consider small bowel follow through study with gastrografin for diagnostic/therapeutic evaluation Dr. Rivrea has seen and examined pt, agrees with above. Admission and Anticipated Discharge Date Admission Date: February 15, 2022 Supervising Physician Co-Signing Physician Notes I have seen and examined the patient personally and agree with the above assessment plan. She continues with minimal flatus. She denies nausea or vomiting. We will continue conservative management for now. We have encouraged ambulation. She may have tea to drink. We will continue to follow. Subjective not much improvement today passing only small amounts of gas no bowel movement no nausea or vomiting tolerated rohit james last evening might feel slightly bloated today Physical Exam Constitutional: WD/WN, vitals as above no acute distress and not ill appearing Respiratory: normal respiratory effort; no respiratory distress and no labored breathing Gastrointestinal (Abdomen): Inspection/Auscultation: abdomen normal to inspection and + abdominal surgical scar (midline laparotomy scar present); abdomen not distended Percussion/Palpation: abdomen soft; abdomen nontender, no guarding and abdomen not rigid Skin: no rashes, warm and dry Psychiatric: A+Ox3, euthymic affect Results & Data ([facility]) Vital Signs (Past 12 Hours) Vital Signs Temp Pulse Resp BP Pulse Ox O2 Del Method 02/16/22 07:49 36.8 C 63 16 128/69 91 Room Air 02/16/22 02:52 94/52 L Laboratory Results 02/16/22 02/16/22 Range/Units 07:01 07:01 WBC 5.75 (4.8-10.8) K/ul RBC 4.34 (3.93-5.22) M/uL Hgb 12.5 (12.0-16.0) g/dl Hct 39.6 (34.1-44.9) % MCV 91.2 (80.0-100.0) fL MCH 28.8 (25.0-34.0) pg MCHC 31.6 L (32.0-36.0) g/dL RDW Std Deviation 43.8 (36.4-46.3) fL RDW Coeff of Ana 13.1 (11.5-14.5) % Plt Count 127 L (130-400) K/uL MPV 12.5 H (9.4-12.3) fL Sodium 140 (136-145) mmol/L Potassium 3.7 (3.5-5.1) mmol/L Chloride 106 (98-107) mmol/L Carbon Dioxide 30 (21-32) mmol/L Anion Gap 4 (3-11) BUN 10 (6-23) mg/dl Creatinine 0.94 (0.6-1.2) mg/dl Est Cr Clr Drug Dosing 38.3 ml/min Est GFR ( Amer) 67.8 ml/min Est GFR (Non-Af Amer) 58.5 ml/min BUN/Creatinine Ratio 10.6 (10-20) Glucose 92 (70-99(Fasting)) mg/dl Calcium 8.3 L (8.5-10.1) mg/dl Phosphorus 3.3 (2.5-4.9) mg/dl Magnesium 1.7 (1.7-2.4) mg/dl
--- NOTE | 2022-02-16 17:45 | Hospitalist Progress Note ---
Date of Service February 16, 2022 Assessment & Plan (1) Small bowel obstruction: Plan partial Small bowel obstruction -management per Surgery. Continue NPO (sips and ice chips ok, ok for small sips of her herbal tea). Plan for small bowel follow through tomomrrow -Limit all non essential oral medications Leukocytosis -likely reactive, improved HTN -home lisinopril held while she is NPO. BP appears labile, will monitor off medications Depression -continue cymbalta Hypothyroidism -synthroid DVT ppx SQ lovenox Admission and Anticipated Discharge Date Admission Date: February 15, 2022 Subjective Not passing flatus Feels discouraged Ambulating around nursing station Sips on her herbal tea. "it helps calm me down" Physical Exam Physical Exam: Tearful at times, pleasant and no acute distress Respiratory: breathing comfortably on room air, no wheezing/rhonchi Cardiovascular: regular rate and rhythm, no murmurs/rubs/gallops Gastrointestinal (Abdomen): Soft, non distended, hypoactive BS Musculoskeletal: No edema Neurologic: awake, alert, spontaneously moving extremities Results & Data Results & Data ([facility]) Vital Signs (Past 12 Hours) Vital Signs Temp Pulse Resp BP Pulse Ox O2 Del Method 02/16/22 15:03 36.4 C L 67 16 151/84 H 95 Room Air 02/16/22 07:49 36.8 C 63 16 128/69 91 Room Air Laboratory Results Short CBC 02/16/22 Range/Units 07:01 WBC 5.75 (4.8-10.8) K/ul Hgb 12.5 (12.0-16.0) g/dl Hct 39.6 (34.1-44.9) % Plt Count 127 L (130-400) K/uL BMP 02/16/22 07:01 Sodium 140 Potassium 3.7 Chloride 106 Carbon Dioxide 30 BUN 10 Creatinine 0.94 Glucose 92 Calcium 8.3 L Medications Administered Current Inpatient Medications Acetaminophen (Acetaminophen 325 Mg Tab) 650 mg PO Q4H PRN PRN Reason: pain/fever Stop: 03/17/22 01:37 Albuterol (Albuterol Hfa 8 Gm Inhaler) 2 puffs INH Q4H PRN PRN Reason: Shortness Of Breath Or Wheezing Stop: 03/17/22 01:37 Cyclobenzaprine HCl (Cyclobenzaprine Hcl 5 Mg Tab) 5 mg PO TID PRN PRN Reason: MUSCLE SPASMS Stop: 03/17/22 01:37 Duloxetine HCl (Duloxetine Hcl 60 Mg Cap) 60 mg PO DAILY [facility] Stop: 03/17/22 08:59 Last Admin: 02/16/22 08:08 Dose: 60 mg Enoxaparin Sodium (Enoxaparin Inj 40 Mg/0.4 Ml Syr) 40 mg SQ Q24H NAYELI Stop: 03/17/22 05:59 Last Admin: 02/16/22 06:08 Dose: 40 mg Famotidine (Famotidine 20 Mg Tab) 20 mg PO DAILY NAYELI Stop: 03/17/22 08:59 Last Admin: 02/15/22 08:01 Dose: 20 mg Fluticasone Propionate (Fluticasone Propionate Na Spr 16 Gm Btl) 2 sprays NA DAILY [facility] Stop: 03/17/22 08:59 Last Admin: 02/16/22 08:09 Dose: 2 sprays Fluticasone/Vilanterol (Fluticasone/Vilanterol 200/25mcg 14 Puffs/Inhaler) 1 puffs INH DAILY [facility] Stop: 03/17/22 08:59 Last Admin: 02/16/22 08:09 Dose: 1 puffs Hydralazine HCl (Hydralazine Hcl 20 Mg/Ml Vial) 5 mg IV Q6H PRN PRN Reason: Hypertension Stop: 03/17/22 06:31 Dextrose/Sodium Chloride (D5w And 1/2nss) 1,000 mls @ 100 mls/hr IV .Q10H [facility] Stop: 03/17/22 01:37 Last Admin: 02/16/22 16:03 Dose: 100 mls/hr Acetaminophen (Ofirmev) 1,000 mg in 100 mls @ 400 mls/hr IV Q8H PRN PRN Reason: Pain Stop: 02/18/22 08:39 Levothyroxine Sodium (Levothyroxine Sodium 75 Mcg Tablet) [facility] Stop: 03/17/22 06:29 Last Admin: 02/16/22 06:08 Dose: 75 mcg Lisinopril (Lisinopril 10 Mg Tab) 10 mg PO DAILY [facility] Stop: 03/17/22 08:59 Last Admin: 02/15/22 08:27 Dose: 10 mg Meclizine HCl (Meclizine Hcl 25 Mg Tab) 25 mg PO TID PRN PRN Reason: vertigo Stop: 03/17/22 11:18 Last Admin: 02/15/22 13:13 Dose: 25 mg Morphine Sulfate (Morphine Sulfate 2 Mg/Ml Carp) 2 mg IV Q4 PRN PRN Reason: Pain Stop: 03/01/22 08:39 Multivitamins (Multivitamin Tab) 1 tab PO DAILY NAYELI Stop: 03/17/22 08:59 Last Admin: 02/15/22 08:01 Dose: 1 tab Ondansetron HCl (Ondansetron Inj 2 Mg/Ml 2 Ml Vial) 4 mg IV Q6H PRN PRN Reason: Nausea Stop: 03/17/22 01:37
[2022-02-17] MEDS: D5W AND 1/2NSS 1,000 ML IV SCH ×3 (02:25→22:13)
[2022-02-17] MEDS: ENOXAPARIN INJ 40 MG/0.4 ML SYR SQ SCH (06:06)
[2022-02-17 06:52] LABS: Hematocrit (blood only) 39.5 % (34.1-44.9); Hemoglobin 12.7 g/dl (12.0-16.0); Mean Corpuscular Hemoglobin 28.8 pg (25.0-34.0); Mean Corpuscular Hgb Conc 32.2 g/dL (32.0-36.0); Mean Corpuscular Volume 89.6 fL (80.0-100.0); Mean Platelet Volume 12.4 fL (9.4-12.3); Platelet Count 119 K/uL (130-400); RDW Coefficient of Variation 12.7 % (11.5-14.5); Red Blood Count 4.41 M/uL (3.93-5.22); White Blood Count 4.69 K/ul (4.8-10.8)
[2022-02-17 07:12] LABS: BUN Creatinine Ratio 8.1 (10-20); Calcium 8.5 mg/dl (8.5-10.1); Creatinine Clr Calc Pharmacy 41.8 ml/min; Est GFR (African American) 75.5 ml/min; Est GFR (Non-African American) 65.2 ml/min; Magnesium 1.8 mg/dl (1.7-2.4); Potassium 3.7 mmol/L (3.5-5.1)
--- NOTE | 2022-02-17 10:17 | Fluoroscopy Report ---
[place] small bowel follow through CLINICAL HISTORY: use gastrografin, eval partial small bowel obstruction TECHNIQUE: Upper GI Study was performed using standard technique. African History Professor images were obtained. Multi ple spot images were obtained. After the upper GI exam was completed, the patient drank an additional cup of barium followed by serial abdominal xray images. FINDINGS: Barium flowed freely through the distal esophagus. There was no evidence of filling defects, strictu res, or ulcers. Barium was then noted to pass into the gastric fundus, body, antrum, and pylorus under fluoroscopic v isualization. No mass, ulcer, or thickened gastric folds were noted. Barium passed into the proximal small bowel freely. No duodenal mass or ulcer was identified. Small bowel loops are normal in caliber and position. The terminal ileum was visualized and appeared gross ly unremarkable. Transit time was rapid at 40 minutes. IMPRESSION: Satisfactory transit of bowel contents without evidence of obstruction. ACT 112: Negative or not required by law. Electronically signed by: Jay Jay Granados M.D. 02/17/2022 10:15 AM
--- NOTE | 2022-02-17 11:21 | Surgery Progress Note ---
Date of Service February 17, 2022 Assessment & Plan (1) Nausea & vomiting: (2) Small bowel obstruction: Plan 76 year-old female with history of sigmoid colon resection with primary anastomosis after colonoscopy perforation in 1979 and total abdominal hysterectomy presented to ED with nausea and vomiting for [address] scan of abdomen and pelvis with distended small bowel likely PSBO due to adhesions with no clear transition point. Mild leukocytosis of 14K. KUB 02/15/2022 showing decreased small bowel distention with no clear radiographic evidence of SBO. 02/17/22 Small bowel follow-through demonstrates contrast freely flowing through the small bowel and into the colon within a normal timeframe. No dilated small bowel. No vomiting. Positive flatus/bowel movement Plan: Advance diet as tolerated Once tolerating diet, november discharge to home Admission and Anticipated Discharge Date Admission Date: February 15, 2022 Subjective Just returned from small bowel follow-through. Has passed a significant amount of flatus and had a bowel movement. Mild nausea from drinking the barium, no current nausea. Physical Exam Constitutional: WD/WN, vitals as above no acute distress and not ill appearing Gastrointestinal (Abdomen): Inspection/Auscultation: abdomen normal to inspection and + abdominal surgical scar (midline laparotomy scar present); abdomen not distended Percussion/Palpation: abdomen soft; abdomen nontender, no guarding and abdomen not rigid Skin: no rashes, warm and dry Psychiatric: A+Ox3, euthymic affect Results & Data ([facility]) Vital Signs (Past 12 Hours) Vital Signs Temp Pulse Resp BP Pulse Ox O2 Del Method 02/17/22 07:24 36.7 C 62 16 150/77 H 95 Room Air
[2022-02-17] MEDS: LEVOTHYROXINE SODIUM 75 MCG TABLET PO SCH (11:28)
[2022-02-17] MEDS: DULoxetine HCL 60 MG CAP PO SCH (11:28)
[2022-02-17] MEDS: FLUTICASONE PROPIONATE NA SPR 16 GM BTL SCH (11:28)
[2022-02-17] MEDS: FLUTICASONE/VILANTEROL 200/25MCG 14 PUFFS/INHALER INH SCH (11:28)
--- NOTE | 2022-02-17 14:26 | Hospitalist Progress Note ---
Date of Service February 17, 2022 Assessment & Plan (1) Small bowel obstruction: Plan 76 year-old female with history of sigmoid colon resection with primary anastomosis after colonoscopy perforation in 1979 and total abdominal hysterectomy presented to ED with nausea and vomiting for 1 day and admitted for SBO, managed conservatively with improvement. CT A/P 02/[address] findings most characteristic of a partial small bowel obstruction related to the distal ileum. However, the exact site of obstruction cannot be determined by this study. It is probably related to adhesions. 2. Postsurgical changes of the sigmoid colon. 3. Additional nonacute findings are delineated above. Small bowel follow through 02/17 Satisfactory transit of bowel contents without evidence of obstruction. Partial Small bowel obstruction - improving with conservative management, no N/V or abd pain, no BM yet - Small bowel follow through today with satisfactory transit of bowel contents without evidence of obstruction - surgery following- advancing diet today to full liquid- monitor Leukocytosis- likely reactive, resolved HTN- resume home lisinopril Depression- continue cymbalta Hypothyroidism- continue synthroid DVT ppx- SQ lovenox Dispo- Anticipate discharge tomorrow if tolerates diet well without issues and has return of bowel function Admission and Anticipated Discharge Date Admission Date: February 15, 2022 Subjective Feels better. Some nausea and throat irritation because of the test this morning. No N/V/abd pain. She is going to eat today. States she hasn't passed gas or BM yet. Physical Exam Physical Exam: General: Sitting comfortably in bed, not in distress, on room air HEENT: EOMI, GRAY, MMM Chest: Clear breath sounds bilaterally, no wheezes or crackles CVS: Regular rate and rhythm, normal heart sounds, no murmur Abdomen: Soft, non tender, not distended, normal bowel sounds Neuro: Awake, alert, oriented, conversing well, non focal Extremities: No cyanosis, clubbing or edema Results & Data Results & Data ([facility]) Vital Signs (Past 12 Hours) Vital Signs Temp Pulse Resp BP Pulse Ox O2 Del Method 02/17/22 07:24 36.7 C 62 16 150/77 H 95 Room Air Laboratory Results Short CBC 02/17/22 Range/Units 06:35 WBC 4.69 L (4.8-10.8) K/ul Hgb 12.7 (12.0-16.0) g/dl Hct 39.5 (34.1-44.9) % Plt Count 119 L (130-400) K/uL BMP 02/17/22 06:35 Sodium 141 Potassium 3.7 Chloride 109 H Carbon Dioxide 27 BUN 7 Creatinine 0.86 Glucose 99 Calcium 8.5 Diagnostic Findings Small Bowel X-Ray 02/17/22 07:00 FL small bowel follow through CLINICAL HISTORY: use gastrografin, eval partial small bowel obstruction TECHNIQUE: Upper GI Study was performed using standard technique. Industrial Paramedic images were obtained. Multiple spot images were obtained. After the upper GI exam was completed, the patient drank an additional cup of barium followed by serial abdominal xray images. FINDINGS: Barium flowed freely through the distal esophagus. There was no evidence of filling defects, strictures, or ulcers. Barium was then noted to pass into the gastric fundus, body, antrum, and pylorus under fluoroscopic visualization. No mass, ulcer, or thickened gastric folds were noted. Barium passed into the proximal small bowel freely. No duodenal mass or ulcer was identified. Small bowel loops are normal in caliber and position. The terminal ileum was visualized and appeared grossly unremarkable. Transit time was rapid at 40 minutes. IMPRESSION: Satisfactory transit of bowel contents without evidence of obstruction. ACT 112: Negative or not required by law. Electronically signed by: Jay Jay Granados M.D. 02/17/2022 10:15 AM Medications Administered Current Inpatient Medications Acetaminophen (Acetaminophen 325 Mg Tab) 650 mg PO Q4H PRN PRN Reason: pain/fever Stop: 03/17/22 01:37 Albuterol (Albuterol Hfa 8 Gm Inhaler) 2 puffs INH Q4H PRN PRN Reason: Shortness Of Breath Or Wheezing Stop: 03/17/22 01:37 Cyclobenzaprine HCl (Cyclobenzaprine Hcl 5 Mg Tab) 5 mg PO TID PRN PRN Reason: MUSCLE SPASMS Stop: 03/17/22 01:37 Duloxetine HCl (Duloxetine Hcl 60 Mg Cap) 60 mg PO DAILY NAYELI Stop: 03/17/22 08:59 Last Admin: 02/17/22 11:28 Dose: 60 mg Enoxaparin Sodium (Enoxaparin Inj 40 Mg/0.4 Ml Syr) 40 mg SQ Q24H NAYELI Stop: 03/17/22 05:59 Last Admin: 02/17/22 06:06 Dose: 40 mg Famotidine (Famotidine 20 Mg Tab) 20 mg PO DAILY NAYELI Stop: 03/17/22 08:59 Last Admin: 02/15/22 08:01 Dose: 20 mg Fluticasone Propionate (Fluticasone Propionate Na Spr 16 Gm Btl) 2 sprays NA DAILY NAYELI Stop: 03/17/22 08:59 Last Admin: 02/17/22 11:28 Dose: 2 sprays Fluticasone/Vilanterol (Fluticasone/Vilanterol 200/25mcg 14 Puffs/Inhaler) 1 puffs INH DAILY NAYELI Stop: 03/17/22 08:59 Last Admin: 02/17/22 11:28 Dose: 1 puffs Hydralazine HCl (Hydralazine Hcl 20 Mg/Ml Vial) 5 mg IV Q6H PRN PRN Reason: Hypertension Stop: 03/17/22 06:31 Dextrose/Sodium Chloride (D5w And 1/2nss) 1,000 mls @ 100 mls/hr IV .Q10H NAYELI Stop: 03/17/22 01:37 Last Infusion: 02/17/22 12:42 Dose: Infused Acetaminophen (Ofirmev) 1,000 mg in 100 mls @ 400 mls/hr IV Q8H PRN PRN Reason: Pain Stop: 02/18/22 08:39 Levothyroxine Sodium (Levothyroxine Sodium 75 Mcg Tablet) [facility] Stop: 03/17/22 06:29 Last Admin: 02/17/22 11:28 Dose: 75 mcg Lisinopril (Lisinopril 10 Mg Tab) 10 mg PO DAILY NAYELI Stop: 03/17/22 08:59 Last Admin: 02/15/22 08:27 Dose: 10 mg Meclizine HCl (Meclizine Hcl 25 Mg Tab) 25 mg PO TID PRN PRN Reason: vertigo Stop: 03/17/22 11:18 Last Admin: 02/15/22 13:13 Dose: 25 mg Morphine Sulfate (Morphine Sulfate 2 Mg/Ml Carp) 2 mg IV Q4 PRN PRN Reason: Pain Stop: 03/01/22 08:39 Multivitamins (Multivitamin Tab) 1 tab PO DAILY NAYELI Stop: 03/17/22 08:59 Last Admin: 02/15/22 08:01 Dose: 1 tab Ondansetron HCl (Ondansetron Inj 2 Mg/Ml 2 Ml Vial) 4 mg IV Q6H PRN PRN Reason: Nausea Stop: 03/17/22 01:37
[2022-02-18] MEDS: ENOXAPARIN INJ 40 MG/0.4 ML SYR SQ SCH (05:49)
[2022-02-18] MEDS: D5W AND 1/2NSS 1,000 ML IV SCH (05:49)
[2022-02-18] MEDS: LEVOTHYROXINE SODIUM 75 MCG TABLET PO SCH (05:49)
[2022-02-18] MEDS: FLUTICASONE/VILANTEROL 200/25MCG 14 PUFFS/INHALER INH SCH (08:34)
[2022-02-18] MEDS: FLUTICASONE PROPIONATE NA SPR 16 GM BTL SCH (08:34)
[2022-02-18] MEDS: DULoxetine HCL 60 MG CAP PO SCH (08:35)
[2022-02-18] MEDS: FAMOTIDINE 20 MG TAB PO SCH (08:37)
[2022-02-18] MEDS: lisinopril 10 MG TAB PO SCH (09:10)
--- NOTE | 2022-02-18 10:07 | Surgery Progress Note ---
Date of Service February 18, 2022 Assessment & Plan (1) Nausea & vomiting: Plan: resolved (2) Small bowel obstruction: Plan: No SBO on SBFT study, contrast reached colon in 40 minutes Plan 76 year-old female with history of sigmoid colon resection with primary anastomosis after colonoscopy perforation in 1979 and total abdominal hysterectomy presented to ED with nausea and vomiting for 1 day. Plan: Continue reg diet Okay from surgical standpoint for discharge d/c IV fluids since taking po well Discussed with Dr. Rivera who agrees with above. Admission and Anticipated Discharge Date Admission Date: February 15, 2022 Subjective had multiple loose bowel movements yesterday and last night after SBFT with gastrografin mild nausea this am no vomiting abdominal soreness but no pain similar to pain in ED/first day of hos pitalization tolerated regular diet this am Physical Exam Constitutional: WD/WN, vitals as above no acute distress and not ill appearing Neck: normal visual inspection and trachea midline Respiratory: normal respiratory effort; no respiratory distress Gastrointestinal (Abdomen): Inspection/Auscultation: abdomen normal to inspection; abdomen not distended Percussion/Palpation: abdomen soft; abdomen nontender, no guarding and abdomen not rigid Skin: no rashes, warm and dry Results & Data ([facility]) Vital Signs (Past 12 Hours) Vital Signs Temp Pulse Pulse Resp BP BP Pulse Ox 02/18/22 07:51 36.5 C 63 20 145/82 H 95 02/17/22 23:41 36.6 C 64 16 162/82 H 92 O2 Del Method 02/18/22 07:51 Room Air 02/17/22 23:41 Room Air
[2022-02-18 11:44] LABS: Hematocrit (blood only) 42.8 % (34.1-44.9); Hemoglobin 14.1 g/dl (12.0-16.0); Mean Corpuscular Hgb Conc 32.9 g/dL (32.0-36.0); Mean Corpuscular Volume 87.9 fL (80.0-100.0); Mean Platelet Volume 12.6 fL (9.4-12.3); Platelet Count 149 K/uL (130-400); RDW Coefficient of Variation 12.7 % (11.5-14.5); RDW Standard Deviation 40.7 fL (36.4-46.3); Red Blood Count 4.87 M/uL (3.93-5.22); White Blood Count 5.37 K/ul (4.8-10.8)
[2022-02-18 11:54] LABS: BUN Creatinine Ratio 9.4 (10-20); Calcium 9.1 mg/dl (8.5-10.1); Creatinine Clr Calc Pharmacy 42.3 ml/min; Est GFR (African American) 76.6 ml/min; Est GFR (Non-African American) 66.1 ml/min; Magnesium 1.9 mg/dl (1.7-2.4); Potassium 3.9 mmol/L (3.5-5.1)
--- NOTE | 2022-02-18 17:12 | Discharge Summary ---
Date of Service February 18, 2022 Admission HPI Per Admitting Provider A 76-year-old female with past medical history significant for hypothyroidism, hyperlipidemia, COPD, mild persistent asthma without complication, hypertension, GERD, chronic kidney disease stage III, presents with abdominal pain and nausea. The patient says since morning she is having abdominal pain that comes as cramps every 2-3 hours, lasts for 10-15 minutes. When it comes, the pain is about 4/10 to 5/10 in severity, associated with nausea. She had a somewhat loose bowel movement on Tuesday morning. The patient says she has a history of bowel obstruction in the past. Denies any chest pain. No shortness of breath, no cough, no fever, no chills. She has currently no headache, no blurred visions, no earache, no runny nose, no sore throat. Resting comfortably, hemodynamically stable. Admission Exam Per Admitting Provider GENERAL: The patient is of moderate build, not in acute distress. VITAL SIGNS: Temperature 36.5, pulse 82, respiratory rate 16, blood pressure 148/85, oxygen 94% on 2 liters. HEENT: Pupils equal, round, and reactive to light. Oral mucosa moist. NECK: No JVD, no neck masses. CARDIOVASCULAR: S1 and S2 heard. Regular rate and rhythm. No murmur, no gallop. RESPIRATORY SYSTEM: Normal AP diameter. No accessory muscle use. No wheezing, no crackles. ABDOMEN: Soft, bowel sounds not heard, nontender, no distention. CENTRAL NERVOUS SYSTEM: Cranial nerves II through XII grossly intact, nonfocal. EXTREMITIES: No edema, no erythema. Principal Diagnosis Partial SBO Discharge Exam General: Sitting comfortably in chair, not in distress, on room air HEENT: EOMI, GRAY, MMM Chest: Clear breath sounds bilaterally, no wheezes or crackles CVS: Regular rate and rhythm, normal heart sounds, no murmur Abdomen: Soft, non tender, not distended, normal bowel sounds Neuro: Awake, alert, oriented, conversing well, non focal Extremities: No cyanosis, clubbing or edema Discharge Data Allergies Allergy/AdvReac Type Severity Reaction Status Date / Time doxycycline Allergy Severe SEVERE Verified 02/14/22 21:37 PHOTOSENSATIVE RASH Penicillins Allergy Intermediate Rash Verified 02/14/22 21:37 phenobarbital Allergy Intermediate Rash Verified 02/14/22 21:37 Tetracyclines Allergy Intermediate Rash Verified 02/14/22 21:37 latex Allergy Rash Verified 02/15/22 01:52 Consultations 02/14/22 22:16 ED Decision to Admit Stat 02/15/22 08:00 Consult General Surgery Routine Ordered Studies 02/14/22 20:18 CT abd pelvis IV con only Urgent 02/17/22 07:00 FL small bowel follow through Routine Laboratory Results WBC 5.37 K/ul (4.8-10.8) 02/18/22 11:08 RBC 4.87 M/uL (3.93-5.22) 02/18/22 11:08 Hgb 14.1 g/dl (12.0-16.0) 02/18/22 11:08 Hct 42.8 % (34.1-44.9) 02/18/22 11:08 MCV 87.9 fL (80.0-100.0) 02/18/22 11:08 MCH 29.0 pg (25.0-34.0) 02/18/22 11:08 MCHC 32.9 g/dL (32.0-36.0) 02/18/22 11:08 RDW Std Deviation 40.7 fL (36.4-46.3) 02/18/22 11:08 RDW Coeff of Ana 12.7 % (11.5-14.5) 02/18/22 11:08 Plt Count 149 K/uL (130-400) 02/18/22 11:08 MPV 12.6 fL (9.4-12.3) H 02/18/22 11:08 Immature Gran % (Auto) 0.2 % 02/15/22 05:17 Neut % (Auto) 82.5 % 02/15/22 05:17 Lymph % (Auto) 11.9 % 02/15/22 05:17 [place] % (Auto) 4.8 % 02/15/22 05:17 Eos % (Auto) 0.4 % 02/15/22 05:17 Baso % (Auto) 0.2 % 02/15/22 05:17 Neut # (Auto) 10.08 K/uL (1.4-6.5) H 02/15/22 05:17 Lymph # (Auto) 1.45 K/uL (1.2-3.4) 02/15/22 05:17 [place] # (Auto) 0.59 K/uL (0.24-0.82) 02/15/22 05:17 Eos # (Auto) 0.05 K/uL (0-0.50) 02/15/22 05:17 Baso # (Auto) 0.02 K/uL (0-0.2) 02/15/22 05:17 Immature Gran # (Auto) 0.03 K/uL (0.00-0.02) H 02/15/22 05:17 Sodium 141 mmol/L (136-145) 02/18/22 11:08 Potassium 3.9 mmol/L (3.5-5.1) 02/18/22 11:08 Chloride 107 mmol/L (98-107) 02/18/22 11:08 Carbon Dioxide 27 mmol/L (21-32) 02/18/22 11:08 Anion Gap 7 (3-11) 02/18/22 11:08 BUN 8 mg/dl (6-23) 02/18/22 11:08 Creatinine 0.85 mg/dl (0.6-1.2) 02/18/22 11:08 Est Cr Clr Drug Dosing 42.3 ml/min 02/18/22 11:08 Est GFR ( Amer) 76.6 ml/min 02/18/22 11:08 Est GFR (Non-Af Amer) 66.1 ml/min 02/18/22 11:08 BUN/Creatinine Ratio 9.4 (10-20) L 02/18/22 11:08 Glucose 88 mg/dl (70-99(Fasting)) 02/18/22 11:08 Calcium 9.1 mg/dl (8.5-10.1) 02/18/22 11:08 Phosphorus 3.3 mg/dl (2.5-4.9) 02/16/22 07:01 Magnesium 1.9 mg/dl (1.7-2.4) 02/18/22 11:08 Total Bilirubin 0.7 mg/dl (0.2-1.0) 02/14/22 20:22 AST 16 U/L (13-39) 02/14/22 20:22 ALT 3 U/L (7-52) L 02/14/22 20:22 Alkaline Phosphatase 96 U/L (34-104) 02/14/22 20:22 Troponin I High Sens 3.3 pg/ml (0-14) 02/14/22 20:22 Total Protein 8.2 gm/dl (6.0-8.3) 02/14/22 20:22 Albumin 4.4 gm/dl (3.4-5.0) 02/14/22 20: Globulin 3.8 gm/dl (2.5-4.0) 02/14/22 20: Albumin/Globulin Ratio 1.2 (0.9-2) 02/14/22 20: Lipase 43 U/L (11-82) 02/14/22 20:22 Urine Color Yellow 02/15/22 04:42 Urine Appearance Clear (Clear) 02/15/22 04:42 Urine pH 6.5 (4.5-7.5) 02/15/22 04:42 Ur Specific [place] > 1.045 (1.000-1.030) H 02/15/22 04:42 Urine Protein Trace (Negative) H 02/15/22 04:42 Urine Glucose (UA) Negative (Negative) 02/15/22 04:42 Urine Ketones Negative (Negative) 02/15/22 04:42 Urine Blood Negative (Negative) 02/15/22 04:42 Urine Nitrite Negative (Negative) 02/15/22 04:42 Urine Bilirubin Negative (Negative) 02/15/22 04:42 Urine Urobilinogen Negative (Negative) 02/15/22 04:42 Ur Leukocyte Esterase Negative (Negative) 02/15/22 04:42 Urine WBC (Auto) 5-10 /hpf (0-5) H 02/15/22 04:42 Urine RBC (Auto) 0-4 /hpf (0-4) 02/15/22 04:42 U Hyaline Cast (Auto) 1-5 /lpf (0-5) 02/15/22 04:42 U Epithel Cells (Auto) 10-20 /lpf (0-5) H 02/15/22 04:42 Urine Bacteria (Auto) Negative (Negative) 02/15/22 04:42 SARS-CoV-2, RNA, NAAT NEGATIVE (NEGATIVE) 02/14/22 20:23 Impressions Abdomen/Pelvis CT 02/14/22 20:18 CT abd pelvis IV con only CLINICAL HISTORY: upper abd pain, n/v COMPARISON STUDY: No previous studies for comparison. CT DOSE: 257.47 mGy.cm TECHNIQUE: Standard CT of the Abdomen and Pelvis was performed with IV contrast. A dose lowering technique was utilized adhering to the principles of ALARA. Contrast Volume: Optiray 320, 94 ml. The patient did not receive oral contrast. FINDINGS: Lung base: The lung bases are clear. Abdominal cavity: There is no evidence for abdominal mass, adenopathy or ascites. There is a small ventral hernia on the right with a loop of bowel bulging into it. There is no evidence for obstruction or incarceration. Liver: There is homogeneous attenuation of the liver parenchyma. There is no evidence for enhancing mass lesion. Spleen: There is homogeneous attenuation of the splenic parenchyma. There is no enhancing mass lesion. Pancreas: There is homogeneous attenuation of the pancreatic parenchyma. There is no evidence for mass lesion or peripancreatic fluid collection. Gall Bladder: The gallbladder is well distended with no evidence for intraluminal calculi, wall thickening or pericholecystic edema. Adrenal glands: The adrenal glands are normal in size and attenuation. There is no evidence for enhancing mass lesion. Kidneys: There is homogeneous attenuation of the renal parenchyma bilaterally. There is no evidence for renal calculus or hydronephrosis. There is no evidence for enhancing mass. Bowel: The stomach is distended with liquid and food stuff. There is mild to moderate dilatation of the jejunum and majority of the ileum with decompression of the distal ileum. The findings are characteristic of a partial small bowel obstruction. The exact site of obstruction cannot be determined. It is most likely related to adhesions. There are postsurgical changes present within the sigmoid colon with end-to-end anastomosis. There is no evidence for mass lesion. There are no inflammatory changes present. There is no evidence for free air. Bladder: The bladder is within normal limits with no evidence for focal mass, calculus or diverticulum. : There is no evidence for pelvic mass or adenopathy. There is no evidence for pelvic ascites. Vasculature: There is no evidence for aneurysmal dilatation of the abdominal aorta. Atherosclerotic calcification is present. Osseous structures: There is no acute osseous pathology. Dextroscoliotic curve with extensive degenerative changes are seen involving the lumbar spine. IMPRESSION: 1. CT findings most characteristic of a partial small bowel obstruction related to the distal ileum. However, the exact site of obstruction cannot be determined by this study. It is probably related to adhesions. 2. Postsurgical changes of the sigmoid colon. 3. Additional nonacute findings are delineated above. ACT 112: Negative or not required by law. Electronically signed by: Ryan Bhatt M.D. 02/15/2022 7:18 AM KUB X-Ray 02/15/22 09:00 XR KUB/Abdomen 1 view CLINICAL HISTORY: sbo. COMPARISON STUDY: CT of the abdomen and pelvis from 02/03/2022 TECHNIQUE: Single view of the abdomen. FINDINGS: Compared to the CT examination, there is decreased gaseous distention of the proximal small bowel. The distal small bowel is decompressed. The colon is decompressed. There is no evidence for organomegaly or gross intra-abdominal mass. No abnormal calcifications are seen along the course of the urinary tracts bilaterally. No acute osseous pathology. IMPRESSION: 1. Decreased gaseous distention of the proximal small bowel with no definite radiographic evidence for small bowel obstruction. ACT 112: Negative or not required by law. Electronically signed by: Ryan Bhatt M.D. 02/15/2022 9:25 AM Small Bowel X-Ray 02/17/22 07:00 FL small bowel follow through CLINICAL HISTORY: use gastrografin, eval partial small bowel obstruction TECHNIQUE: Upper GI Study was performed using standard technique. Equipment Cleaner images were obtained. Multiple spot images were obtained. After the upper GI exam was completed, the patient drank an additional cup of barium followed by serial abdominal xray images. FINDINGS: Barium flowed freely through the distal esophagus. There was no evidence of filling defects, strictures, or ulcers. Barium was then noted to pass into the gastric fundus, body, antrum, and pylorus under fluoroscopic visualization. No mass, ulcer, or thickened gastric folds were noted. Barium passed into the proximal small bowel freely. No duodenal mass or ulcer was identified. Small bowel loops are normal in caliber and position. The terminal ileum was visualized and appeared grossly unremarkable. Transit time was rapid at 40 minutes. IMPRESSION: Satisfactory transit of bowel contents without evidence of obstruction. ACT 112: Negative or not required by law. Electronically signed by: Jay Jay Granados M.D. 02/17/2022 10:15 AM Hospital Course (1) Small bowel obstruction: Plan 76 year-old female with history of sigmoid colon resection with primary anastomosis after colonoscopy perforation in 1979 and total abdominal hysterectomy presented to ED with nausea and vomiting for 1 day and admitted for SBO, managed conservatively with improvement.Tolerating normal diet without any N/V/abd pain. Having multiple BM after small bowel follow through study yesterday. Seen by surgery and cleared for discharge. She is comfortable and stable for discharge home. Denies any needs at discharge. CT A/P 02/[address] findings most characteristic of a partial small bowel obstruction related to the distal ileum. However, the exact site of obstruction cannot be determined by this study. It is probably related to adhesions. 2. Postsurgical changes of the sigmoid colon. 3. Additional nonacute findings are delineated above. Small bowel follow through 02/17 Satisfactory transit of bowel contents without evidence of obstruction. Partial Small bowel obstruction - resolved with conservative management- SB follow throughwith no SBO, contrast reached colon in 40 mins. Denies any N/V or abd pain. Tolerating regular diet without issues. Having multiple BM after small bowel follow through study- likely related to Gastrografin per discussion with surgical team and they cleared him for discharge home. Leukocytosis- likely reactive, resolved HTN- continue home lisinopril Depression- continue cymbalta Hypothyroidism- continue synthroid Total Time Total Time Spent Total Time Spent (In Minutes): 40 Discharge Plan Discharge Items Patient Disposition: Home - Self-Care Reason For Visit: N/V Discharge Diagnosis: SBO Activity: Resume your previous activity Non-emergency contact: Primary Care Provider Call non-emergency contact if: you have any medication questions, your symptoms worsen, your pain is not controlled and you have a fever Follow-up/Referrals: PCP,NO [Primary Care Provider] - Diet: Regular Addtl Attending Provider Instructions: You had small bowel obstruction which seems resolved. If you have worsening abdominal pain, vomiting or unable to pass gas or bowel movements, or unable to tolerate oral intake, please come back to the emergency. Pending Studies at Discharge: No Stand-Alone Forms: [employer], Work/School Release, Smoking Cessation Medications and DC Order Prescriptions: Continued multivitamin Tablet 1 tab PO DAILY lysine 1,000 mg Tablet 1,000 mg PO DAILY levothyroxine 75 mcg tablet 75 mcg PO DAILYBB famotidine 20 mg Tablet 20 mg PO DAILY lisinopril 10 mg tablet 10 mg PO DAILY albuterol sulfate 90 mcg/actuation Hfa Aerosol Inhaler 2 puff INHALATION Q4H PRN (Reason: Shortness Of Breath Or Wheezing) fluticasone propionate 50 mcg/actuation [place],Suspension 2 spray INTRANASAL DAILY Rx Instructions: administer into each nostril cholecalciferol (vitamin D3) [Vitamin D3] 25 mcg (1,000 unit) Capsule 25 mcg PO DAILY coenzyme Q10 [CoQ-10] 100 mg Capsule 100 mg PO DAILY cyclobenzaprine 5 mg Tablet 5 mg PO TID PRN (Reason: MUSCLE SPASMS) duloxetine 60 mg Capsule,Delayed Release(Dr/Ec) 60 mg PO DAILY calcium carbonate-vitamin D3 [Calcium 600 with Vitamin D3] 600 mg-12.5 mcg (500 unit) Capsule 2 cap PO DAILY fluticasone furoate-vilanterol [Breo Ellipta] 200-25 mcg/dose Blister With Device 1 inh INHALATION DAILY Discharge Orders: Discharge Order (Routine); Ordered 02/18/22 Ordered By: Marcos Sparks/Other Patient Handouts: Small Bowel Obstruction Admission Data Admit Date/Time: 02/15/22 00:11 Attending Provider: Marcos Farooq Admit Provider: Willie Toledo Primary Care Provider: PCP,NO Other Providers: Willie Toledo ; Arya Rivera ; Jorge Bhandari ; Katarzyna Grace ; Parvin Paul ; King Nassar ; Ricky Nelson ; Humaira Khalil ; Beverley Leblanc ; Tristen Myers Jr ; Constantine Hines ; Venkatesh Diaz ; Minerva Cherry Other Interventions: Discharge Summary Assessment (RN) Last Done: 02/18/22 11:20
== END 2022-02-18 14:30 | disposition home or self-care (01) | DRG 390 ==
LOC: ED 19:51 → 3E 02-15 00:11 → INTOOBSV 02-15 00:11 → SUATTDRO 02-15 00:11 → 3E 02-15 01:23